=== PATIENT | female | born 1935 | race Caucasian/White ===

== ENCOUNTER 2017-03-17 07:47 | Emergency (ER) | payer MEDICARE, OTHER ==
[2017-03-17 08:41] LABS: Hematocrit 42 % (35-47); Mean Corpuscular HGB Conc 33 g/dl (31-36); Mean Corpuscular Hemoglobin 30 pg (27-31); Mean Corpuscular Volume 91 fL (80-97); Mean Platelet Volume 9 um3 (7.4-10.4); Red Blood Count 4.63 10^6/ul (4.0-5.4); Red Cell Distribution Width 14 % (10.5-15); White Blood Count 6.6 10^3/ul (3.5-10.8)
[2017-03-17 08:48] LABS: Albumin 4.1 g/dL (3.2-5.2); BUN/Creatinine Ratio 22.9 (8-20); Calcium 9.7 mg/dL (8.6-10.3); EGFR African American 71.4 (>60); EGFR Non-African American 55.5 (>60); Potassium 4.1 mmol/L (3.5-5.0); Total Bilirubin 0.5 mg/dL (0.2-1.0); Total Protein 7.1 g/dL (6.4-8.9)
[2017-03-17 12:35] LABS: Hematocrit 41 % (35-47); Hemoglobin 13.5 g/dl (12.0-16.0); Mean Corpuscular HGB Conc 33 g/dl (31-36); Mean Corpuscular Hemoglobin 30 pg (27-31); Mean Corpuscular Volume 91 fL (80-97); Mean Platelet Volume 9 um3 (7.4-10.4); Red Blood Count 4.47 10^6/ul (4.0-5.4); Red Cell Distribution Width 14 % (10.5-15); White Blood Count 8.4 10^3/ul (3.5-10.8)
[2017-03-17 13:21] VITALS: BP 173/78
--- NOTE | 2017-03-18 08:00 | ED ---
Ludin Knight Alfonso, scribed for Wilfredo Hernandez MD on 03/17/17 at 0804 . GI/ HPI - HPI Summary HPI Summary: This pt is an 82 y.o. F presenting to [facility] for bright red blood in her stool this morning. She reports the sensation of "burning in my rectum." Sx aggravated and alleviated by nothing. She denies nausea and vomiting. PMHx of internal hemorrhoids. Denies taking any blood thinning medication. Her last colonoscopy was 5-8 years ago - History of Current Complaint Chief Complaint: EDBleedingDisorder Time Seen by Provider: 03/17/17 07:51 Stated Complaint: RECTAL BLEEDING Hx Obtained From: Patient Onset/Duration: Started Hours Ago - This morning, Still Present Timing: Constant Severity: Moderate Current Severity: Moderate Location of Pain: Rectal - Burning Pain Characteristics: Burning Associated Signs and Symptoms: Positive: Bright Red Blood w/Stool. Negative: Nausea, Vomiting Aggravating Factor(s): Nothing Alleviating Factor(s): Nothing - Allergy/Home Medications Allergies/Adverse Reactions: Allergies Allergy/AdvReac Type Severity Reaction Status Date / Time Meperidine [From Demerol HCl] Allergy Vomiting Verified 12/11/15 07:17 PMH/Surg Hx/FS Hx/Imm Hx Endocrine/Hematology History: Reports: Hx Anticoagulant Therapy Denies: Hx Diabetes, Hx Thyroid Disease Cardiovascular History: Reports: Hx Hypertension Denies: Hx Congestive Heart Failure, Hx Deep Vein Thrombosis, Hx Myocardial Infarction, Hx Pacemaker/ICD Respiratory History: Denies: Hx Asthma, Hx Chronic Obstructive Pulmonary Disease (COPD), Hx Lung Cancer GI History: Denies: Hx Gall Bladder Disease, Hx Gastrointestinal Bleed, Hx Ulcer, Hx Urosepsis History: Denies: Hx Kidney Stones, Hx Renal Disease Neurological History: Denies: Hx Dementia, Hx Migraine, Hx Seizures, Hx Transient Ischemic Attacks (TIA) Psychiatric History: Denies: Hx Anxiety, Hx Depression, Hx Schizophrenia, Hx Bipolar Disorder - Cancer History Cancer Type, Location and Year: Basal cell - Surgical History Surgery Procedure, Year, and Place: Gallbladder, tonsil and adenoids, appendectomy Infectious Disease History: Denies: Hx Clostridium Difficile, Hx Hepatitis, Hx Human Immunodeficiency Virus (HIV), Hx of Known/Suspected MRSA, Hx Shingles, Hx Tuberculosis, Hx Known/ Suspected VRE, Hx Known/Suspected VRSA, History Other Infectious Disease, Traveled Outside the [place] in Last 30 Days - Family History Known Family History: Positive: Hypertension - Social History Alcohol Use: None Substance Use Type: Reports: None Smoking Status (MU): Never Smoked Tobacco Review of Systems Negative: Vomiting, Nausea Positive: burning - In rectum, other - blood in stool All Other Systems Reviewed And Are Negative: Yes Physical Exam - Summary Physical Exam Summary: VITAL SIGNS: Reviewed. GENERAL: Patient is a well-developed and nourished (MALE OR FEMALE) who is lying comfortable in the stretcher. Patient is not in any acute respiratory distress. HEAD AND FACE: No signs of trauma. No ecchymosis, hematomas or skull depressions. No sinus tenderness. EYES: PERRLA, EOMI x 2, No injected conjunctiva, no nystagmus. EARS: Hearing grossly intact. Ear canals and tympanic membranes are within normal limits. MOUTH: Oropharynx within normal limits. NECK: Supple, trachea is midline, no adenopathy, no JVD, no carotid bruit, no c- spine tenderness, neck with full ROM. CHEST: Symmetric, no tenderness at palpation LUNGS: Clear to auscultation bilaterally. No wheezing or crackles. CVS: Regular rate and rhythm, S1 and S2 present, no murmurs or gallops appreciated. ABDOMEN: Soft, non-tender. No signs of distention. No rebound no guarding, and no masses palpated. Bowel sounds are normal. EXTREMITIES: FROM in all major joints, no edema, no cyanosis or clubbing. NEURO: Alert and oriented x 3. No acute neurological deficits. Speech is normal and follows commands. 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 Normal sphincter tone. Multiple external hemorrhoids. Slight amount of bright red rectal blood. Triage Information Reviewed: Yes Vital Signs On Initial Exam: Initial Vitals Temp Pulse Resp BP Pulse Ox 98.7 F 92 16 193/71 99 03/17/17 07:55 03/17/17 07:55 03/17/17 07:55 03/17/17 07:55 03/17/17 07:55 Vital Signs Reviewed: Yes - [place] Coma Scale Coma Scale Total: 15 Diagnostics - Vital Signs Vital Signs Temp Pulse Resp BP Pulse Ox 03/17/17 07:55 98.7 F 92 16 193/71 99 - Laboratory Lab Results: Lab Results 03/17/17 03/17/17 03/17/17 Range/Units 08:15 08:15 08:15 WBC 6.6 (3.5-10.8) 10^3/ul RBC 4.63 (4.0-5.4) 10^6/ul Hgb 14.0 (12.0-16.0) g/dl Hct 42 (35-47) % MCV 91 (80-97) fL MCH 30 (27-31) pg MCHC 33 (31-36) g/dl RDW 14 (10.5-15) % Plt Count 210 (150-450) 10^3/ul MPV 9 (7.4-10.4) um3 Neut % (Auto) 48.4 (38-83) % Lymph % (Auto) 42.2 (25-47) % [place] % (Auto) 6.8 (1-9) % Eos % (Auto) 1.9 (0-6) % Baso % (Auto) 0.7 (0-2) % Absolute Neuts (auto) 3.2 (1.5-7.7) 10^3/ul Absolute Lymphs (auto) 2.8 (1.0-4.8) 10^3/ul Absolute Monos (auto) 0.5 (0-0.8) 10^3/ul Absolute Eos (auto) 0.1 (0-0.6) 10^3/ul Absolute Basos (auto) 0 (0-0.2) 10^3/ul Absolute Nucleated RBC 0.01 10^3/ul Nucleated RBC % 0.1 INR (Anticoag Therapy) 0.82 L (0.89-1.11) APTT 28.1 (26.0-36.3) seconds Sodium 137 (133-145) mmol/L Potassium 4.1 (3.5-5.0) mmol/L Chloride 104 (101-111) mmol/L Carbon Dioxide 27 (22-32) mmol/L Anion Gap 6 (2-11) mmol/L BUN 22 (6-24) mg/dL Creatinine 0.96 H (0.51-0.95) mg/dL Est GFR ( Amer) 71.4 (>60) Est GFR (Non-Af Amer) 55.5 (>60) BUN/Creatinine Ratio 22.9 H (8-20) Glucose 92 (70-100) mg/dL Calcium 9.7 (8.6-10.3) mg/dL Total Bilirubin 0.50 (0.2-1.0) mg/dL AST 28 (13-39) U/L ALT 21 (7-52) U/L Alkaline Phosphatase 73 (34-104) U/L Total Protein 7.1 (6.4-8.9) g/dL Albumin 4.1 (3.2-5.2) g/dL Globulin 3.0 (2-4) g/dL Albumin/Globulin Ratio 1.4 (1-3) Blood Type Antibody Screen Antibody Identification Direct Antiglob Test 03/17/17 03/17/17 Range/Units 08:15 12:14 WBC 8.4 (3.5-10.8) 10^3/ul RBC 4.47 (4.0-5.4) 10^6/ul Hgb 13.5 (12.0-16.0) g/dl Hct 41 (35-47) % MCV 91 (80-97) fL MCH 30 (27-31) pg MCHC 33 (31-36) g/dl RDW 14 (10.5-15) % Plt Count 201 (150-450) 10^3/ul MPV 9 (7.4-10.4) um3 Neut % (Auto) 65.3 (38-83) % Lymph % (Auto) 28.3 (25-47) % [place] % (Auto) 4.7 (1-9) % Eos % (Auto) 0.4 (0-6) % Baso % (Auto) 1.3 (0-2) % Absolute Neuts (auto) 5.5 (1.5-7.7) 10^3/ul Absolute Lymphs (auto) 2.4 (1.0-4.8) 10^3/ul Absolute Monos (auto) 0.4 (0-0.8) 10^3/ul Absolute Eos (auto) 0 (0-0.6) 10^3/ul Absolute Basos (auto) 0.1 (0-0.2) 10^3/ul Absolute Nucleated RBC 0 10^3/ul Nucleated RBC % 0 INR (Anticoag Therapy) (0.89-1.11) APTT (26.0-36.3) seconds Sodium (133-145) mmol/L Potassium (3.5-5.0) mmol/L Chloride (101-111) mmol/L Carbon Dioxide (22-32) mmol/L Anion Gap (2-11) mmol/L BUN (6-24) mg/dL Creatinine (0.51-0.95) mg/dL Est GFR ( Amer) (>60) Est GFR (Non-Af Amer) (>60) BUN/Creatinine Ratio (8-20) Glucose (70-100) mg/dL Calcium (8.6-10.3) mg/dL Total Bilirubin (0.2-1.0) mg/dL AST (13-39) U/L ALT (7-52) U/L Alkaline Phosphatase (34-104) U/L Total Protein (6.4-8.9) g/dL Albumin (3.2-5.2) g/dL Globulin (2-4) g/dL Albumin/Globulin Ratio (1-3) Blood Type A Negative Antibody Screen Positive Antibody Identification Anti-D Direct Antiglob Test Negative Result Diagrams: 03/17/17 12:14 03/17/17 08:15 Lab Statement: Any lab studies that have been ordered have been reviewed, and results considered in the medical decision making process. Re-Evaluation - Re-Evaluation 1218 Re-Evaluation Time: 12:18 - Pt sx are improved. She has no complains at this time. Change: Improved Second Eval Re-Evaluation Time: 13:15 - Improved. Asymptomatic. Wants to go home. Change: Improved GIGU Course/Dx - Course Course Of Treatment: This pt is an 82 y.o. F presenting to [facility] for bright red blood in her stool this morning. She reports the sensation of "burning in my rectum." Sx aggravated and alleviated by nothing. She denies nausea and vomiting. PMHx of internal hemorrhoids. Denies taking any blood thinning medication. Her last colonoscopy was 5-8 years ago Assessment/Plan: Test results within normal limits. Hemoglobin and hematocrit are normal. 4 hours later I repeated H&H and still stable. In the ed course, patient has no episodes of rectal bleeding. I believe the bleeding is secondary to external hemorrhoids. Patient will buy OTC hemorrhoid medication and follow up with PCP. I discussed all the findings and test results with the patient and the need to return to the ED if she develops more bleeding, palpations, dizziness, or the feeling she is going to pass out. She is hemodynamically stable and AxOx3. This pt is an 82 y.o. F presenting to [facility] for bright red blood in her stool this morning. She reports the sensation of "burning in my rectum." Sx aggravated and alleviated by nothing. She denies nausea and vomiting. PMHx of internal hemorrhoids. Denies taking any blood thinning medication. Her last colonoscopy was 5-8 years ago - Diagnoses Differential Diagnoses - Female: Hemorrhoids, Other - GI bleed Provider Diagnoses: External hemorrhoid Discharge - Discharge Plan Condition: Stable Disposition: HOME Patient Education Materials: Hemorrhoids (ED) Referrals: Black Ojeda MD [Primary Care Provider] - 3 Days The documentation as recorded by the Ludin alcantara Alfonso accurately reflects the service I personally performed and the decisions made by me, Wilfredo Hernandez MD.
== END 2017-03-17 13:22 | disposition home or self-care (01) ==
LOC: ED 07:47
DX: K64.4 Residual hemorrhoidal skin tags (principal); K62.5 Hemorrhage of anus and rectum
CPT/HCPCS: 36415; 80053; 82270; 85025; 85610; 85730; 86850; 86870; 86880; 86900; 86901; 99282

== ENCOUNTER 2017-04-18 09:23 | Emergency (ER) | payer MEDICARE, OTHER ==
--- NOTE | 2017-04-18 11:32 | RAD ---
HISTORY: Nausea COMPARISONS: January 19, 2015 VIEWS: 4: Frontal dual-energy and lateral views of the chest. FINDINGS: CARDIOMEDIASTINAL SILHOUETTE: The cardiomediastinal silhouette is normal. JENA: The jena are normal. PLEURA: The costophrenic angles are sharp. No pleural abnormalities are noted. LUNG PARENCHYMA: The lungs are clear. ABDOMEN: There is a small hiatal hernia BONES AND SOFT TISSUES: There is a scoliotic curvature of the spine OTHER: None. IMPRESSION: SMALL HIATAL HERNIA. NO ACTIVE CARDIOPULMONARY DISEASE.
--- NOTE | 2017-04-18 11:33 | RAD ---
HISTORY: Nausea COMPARISONS: None VIEWS: Frontal views of the abdomen. FINDINGS: BOWEL: There is a nonspecific bowel gas pattern, with nondilated small bowel gas noted. There is a moderate amount of stool within the colon. There is a small hiatal hernia CALCULI: There are no abnormal calculi. BONES AND SOFT TISSUES: There is a scoliotic curvature of the spine OTHER FINDINGS: The lung bases are clear. There is no subphrenic gas. IMPRESSION: HIATAL HERNIA. NONSPECIFIC BOWEL GAS PATTERN.
[2017-04-18 12:10] LABS: Hematocrit 42 % (35-47); Hemoglobin 13.9 g/dl (12.0-16.0); Mean Corpuscular HGB Conc 33 g/dl (31-36); Mean Corpuscular Hemoglobin 31 pg (27-31); Mean Corpuscular Volume 93 fL (80-97); Mean Platelet Volume 9 um3 (7.4-10.4); Red Blood Count 4.52 10^6/ul (4.0-5.4); Red Cell Distribution Width 14 % (10.5-15); White Blood Count 7.2 10^3/ul (3.5-10.8)
[2017-04-18 12:28] LABS: Albumin 3.9 g/dL (3.2-5.2); BUN/Creatinine Ratio 22.8 (8-20); Calcium 9.5 mg/dL (8.6-10.3); EGFR Non-African American 58.3 (>60); Globulin 3.2 g/dL (2-4); Potassium 4.2 mmol/L (3.5-5.0); Total Bilirubin 0.6 mg/dL (0.2-1.0); Total Protein 7.1 g/dL (6.4-8.9)
[2017-04-18 14:18] LABS: Urine Bilirubin Negative (Negative); Urine Glucose Negative (Negative); Urine Nitrite Negative (Negative)
--- NOTE | 2017-04-18 15:03 | ED ---
Abdominal Pain/Female - HPI Summary HPI Summary: Patient presents to ED with nausea x 3 weeks worse in the morning and dissipates after eating breakfast. Denies heartburn diarrhea, constipation, or vomiting. She was seen in the ED 2 weeks ago with rectal bleeding and dx with hemorrhoids. She is no longer having rectal bleeding and denies any chest pain , SOB, FREEMAN, weakness, dizziness or difficulty swallowing. She is eating and drinking OK, but per daughter has been eating less and has recently cut out sugar d/t having a recent BG of 102. She is otherwise healthy. - History of Current Complaint Chief Complaint: EDNauseaVomitDiarrh Stated Complaint: NAUSEA Hx Obtained From: Patient Hx Last Menstrual Period: Years ago. ?: No Onset/Duration: Sudden Onset Timing: Minutes Severity Initially: Mild Severity Currently: Mild Pain Intensity: 0 Pain Scale Used: 0-10 Numeric Location: Epigastric Radiates: No Character: Dull Aggravating Factor(s): Nothing Alleviating Factor(s): Other: - food Associated Signs and Symptoms: Positive: Negative - Risk Factors Ectopic Risk Factor: Negative Ovarian Torsion Risk Factor: Negative Allergies/Adverse Reactions: Allergies Allergy/AdvReac Type Severity Reaction Status Date / Time Meperidine [From Demerol HCl] Allergy Vomiting Verified 12/11/15 07:17 PMH/Surg Hx/FS Hx/Imm Hx Previously Healthy: Yes Endocrine/Hematology History: Reports: Hx Anticoagulant Therapy Denies: Hx Diabetes, Hx Thyroid Disease Cardiovascular History: Reports: Hx Hypertension Denies: Hx Congestive Heart Failure, Hx Deep Vein Thrombosis, Hx Myocardial Infarction, Hx Pacemaker/ICD Respiratory History: Denies: Hx Asthma, Hx Chronic Obstructive Pulmonary Disease (COPD), Hx Lung Cancer GI History: Denies: Hx Gall Bladder Disease, Hx Gastrointestinal Bleed, Hx Ulcer, Hx Urosepsis History: Denies: Hx Kidney Stones, Hx Renal Disease Neurological History: Denies: Hx Dementia, Hx Migraine, Hx Seizures, Hx Transient Ischemic Attacks (TIA) Psychiatric History: Denies: Hx Anxiety, Hx Depression, Hx Schizophrenia, Hx Bipolar Disorder - Cancer History Cancer Type, Location and Year: Basal cell - Surgical History Surgery Procedure, Year, and Place: Gallbladder, tonsil and adenoids, appendectomy - Immunization History Hx Pertussis Vaccination: No Immunizations Up to Date: Unable to Obtain/Confirm Infectious Disease History: Denies: Hx Clostridium Difficile, Hx Hepatitis, Hx Human Immunodeficiency Virus (HIV), Hx of Known/Suspected MRSA, Hx Shingles, Hx Tuberculosis, Hx Known/ Suspected VRE, Hx Known/Suspected VRSA, History Other Infectious Disease, Traveled Outside the [place] in Last 30 Days - Family History Known Family History: Positive: None, Hypertension - Social History Occupation: Unemployed, Retired Lives: Assisted Living Alcohol Use: None Hx Substance Use: No Substance Use Type: Reports: None Hx Tobacco Use: No Smoking Status (MU): Never Smoked Tobacco Review of Systems Constitutional: Negative Eyes: Negative Cardiovascular: Negative Respiratory: Negative Positive: Nausea Positive: no symptoms reported, see HPI Musculoskeletal: Negative Neurological: Negative Psychological: Normal All Other Systems Reviewed And Are Negative: Yes Physical Exam Triage Information Reviewed: Yes Vital Signs On Initial Exam: Initial Vitals Temp Pulse Resp BP 97.6 F 94 18 176/76 04/18/17 09:24 04/18/17 09:24 04/18/17 09:24 04/18/17 09:24 Vital Signs Reviewed: Yes Appearance: Positive: Well-Appearing, Well-Nourished Skin: Positive: Warm, Skin Color Reflects Adequate Perfusion Eyes: Positive: Normal, EOMI, [place], Conjunctiva Clear Neck: Positive: Supple, No Lymphadenopathy Respiratory/Lung Sounds: Positive: Clear to Auscultation, Breath Sounds Present Cardiovascular: Positive: Normal, RRR, Pulses are Symmetrical in both Upper and Lower Extremities Musculoskeletal: Positive: Normal, Strength/ROM Intact Neurological: Positive: Normal, Sensory/Motor Intact, Alert, Oriented to Person Place, Time Psychiatric: Positive: Normal AVPU Assessment: Alert - [place] Coma Scale Coma Scale Total: 15 Diagnostics - Vital Signs Vital Signs Temp Pulse Resp BP Pulse Ox 04/18/17 09:59 97.8 F 75 16 154/84 100 04/18/17 09:24 97.6 F 94 18 176/76 - Laboratory Lab Results: Lab Results 04/18/17 04/18/17 04/18/17 Range/Units 12:02 12:02 12:02 WBC 7.2 (3.5-10.8) 10^3/ul RBC 4.52 (4.0-5.4) 10^6/ul Hgb 13.9 (12.0-16.0) g/dl Hct 42 (35-47) % MCV 93 (80-97) fL MCH 31 (27-31) pg MCHC 33 (31-36) g/dl RDW 14 (10.5-15) % Plt Count 206 (150-450) 10^3/ul MPV 9 (7.4-10.4) um3 Neut % (Auto) 63.8 (38-83) % Lymph % (Auto) 30.2 (25-47) % [place] % (Auto) 5.3 (1-9) % Eos % (Auto) 0.2 (0-6) % Baso % (Auto) 0.5 (0-2) % Absolute Neuts (auto) 4.6 (1.5-7.7) 10^3/ul Absolute Lymphs (auto) 2.2 (1.0-4.8) 10^3/ul Absolute Monos (auto) 0.4 (0-0.8) 10^3/ul Absolute Eos (auto) 0 (0-0.6) 10^3/ul Absolute Basos (auto) 0 (0-0.2) 10^3/ul Absolute Nucleated RBC 0 10^3/ul Nucleated RBC % 0 Sodium 140 (133-145) mmol/L Potassium 4.2 (3.5-5.0) mmol/L Chloride 106 (101-111) mmol/L Carbon Dioxide 26 (22-32) mmol/L Anion Gap 8 (2-11) mmol/L BUN 21 (6-24) mg/dL Creatinine 0.92 (0.51-0.95) mg/dL Est GFR ( Amer) 75.0 (>60) Est GFR (Non-Af Amer) 58.3 (>60) BUN/Creatinine Ratio 22.8 H (8-20) Glucose 93 (70-100) mg/dL Lactic Acid 0.9 (0.5-2.0) mmol/L Calcium 9.5 (8.6-10.3) mg/dL Total Bilirubin 0.60 (0.2-1.0) mg/dL AST 27 (13-39) U/L ALT 23 (7-52) U/L Alkaline Phosphatase 66 (34-104) U/L Troponin I 0.00 (<0.04) ng/mL Total Protein 7.1 (6.4-8.9) g/dL Albumin 3.9 (3.2-5.2) g/dL Globulin 3.2 (2-4) g/dL Albumin/Globulin Ratio 1.2 (1-3) Amylase 58 (29-103) U/L Lipase 20 (11.0-82.0) U/L Urine Color Urine Appearance Urine pH (5-9) Ur Specific [place] (1.010-1.030) Urine Protein (Negative) Urine Ketones (Negative) Urine Blood (Negative) Urine Nitrate (Negative) Urine Bilirubin (Negative) Urine Urobilinogen (Negative) Ur Leukocyte Esterase (Negative) Urine WBC (Auto) (Absent) Urine RBC (Auto) (Absent) Urine Glucose (Negative) Urine Ascorbic Acid (Negative) 04/18/17 Range/Units 13:30 WBC (3.5-10.8) 10^3/ul RBC (4.0-5.4) 10^6/ul Hgb (12.0-16.0) g/dl Hct (35-47) % MCV (80-97) fL MCH (27-31) pg MCHC (31-36) g/dl RDW (10.5-15) % Plt Count (150-450) 10^3/ul MPV (7.4-10.4) um3 Neut % (Auto) (38-83) % Lymph % (Auto) (25-47) % [place] % (Auto) (1-9) % Eos % (Auto) (0-6) % Baso % (Auto) (0-2) % Absolute Neuts (auto) (1.5-7.7) 10^3/ul Absolute Lymphs (auto) (1.0-4.8) 10^3/ul Absolute Monos (auto) (0-0.8) 10^3/ul Absolute Eos (auto) (0-0.6) 10^3/ul Absolute Basos (auto) (0-0.2) 10^3/ul Absolute Nucleated RBC 10^3/ul Nucleated RBC % Sodium (133-145) mmol/L Potassium (3.5-5.0) mmol/L Chloride (101-111) mmol/L Carbon Dioxide (22-32) mmol/L Anion Gap (2-11) mmol/L BUN (6-24) mg/dL Creatinine (0.51-0.95) mg/dL Est GFR ( Amer) (>60) Est GFR (Non-Af Amer) (>60) BUN/Creatinine Ratio (8-20) Glucose (70-100) mg/dL Lactic Acid (0.5-2.0) mmol/L Calcium (8.6-10.3) mg/dL Total Bilirubin (0.2-1.0) mg/dL AST (13-39) U/L ALT (7-52) U/L Alkaline Phosphatase (34-104) U/L Troponin I (<0.04) ng/mL Total Protein (6.4-8.9) g/dL Albumin (3.2-5.2) g/dL Globulin (2-4) g/dL Albumin/Globulin Ratio (1-3) Amylase (29-103) U/L Lipase (11.0-82.0) U/L Urine Color Yellow Urine Appearance Cloudy Urine pH 5.0 (5-9) Ur Specific [place] 1.021 (1.010-1.030) Urine Protein 1+(30 mg/dl) H (Negative) Urine Ketones Trace H (Negative) Urine Blood Negative (Negative) Urine Nitrate Negative (Negative) Urine Bilirubin Negative (Negative) Urine Urobilinogen Negative (Negative) Ur Leukocyte Esterase 2+ H (Negative) Urine WBC (Auto) 2+(11-20/hpf) H (Absent) Urine RBC (Auto) Absent (Absent) Urine Glucose Negative (Negative) Urine Ascorbic Acid * H (Negative) Result Diagrams: 04/18/17 12:02 04/18/17 12:02 Lab Statement: Any lab studies that have been ordered have been reviewed, and results considered in the medical decision making process. Abdominal Pain Fem Course/Dx - Course Course Of Treatment: Patient arrives with CC of nausea in the morning. She experienced rectal bleeding 3 weeks ago and was seen in the ED, diagnosed with hemorrhoids. She is concerned both are related. No rectal bleeding x 2 weeks. Xray reveals small hiatal hernia. She notes to nausea only in the mornings and dissipates after PO intake. Denies other complaints at this time. VS stable and labs WNL. UA shows leuks and WBC and will treat with Cipro for UTI. Zofran given PRN rx. Omeprazole 20mg encouraged daily until follow up with GI. Treatment options discussed and patient agrees to see Dr. Mckinnon. - Diagnoses Differential Diagnosis: Positive: Peptic Ulcer Disease, Urinary Tract Infection , Other - nausea Provider Diagnoses: Hiatal hernia Discharge - Discharge Plan Condition: Stable Disposition: HOME Prescriptions: Ciprofloxacin TAB* [Cipro 500 MG TAB*] 500 mg PO BID #14 tab MDD 2 Omeprazole CAP* [Prilosec CAP* 20 MG] 20 mg PO DAILY #30 cap. Ondansetron ODT TAB* [Zofran 4 MG Odt TAB*] 4 mg PO Q6H PRN #12 tab.odt PRN Reason: Nausea Patient Education Materials: Hiatal Hernia (ED) Referrals: Black Ojeda MD [Primary Care Provider] - Additional Instructions: Dx: Hiatal Hernia Follow up with Dr. Mckinnon For nausea, you may take 4mg zofran as needed Take omeprazole 20mg daily for heartburn and nausea symptoms Ciprofloxacin 500mg twice daily for 7 days for UTI symptoms Dx. Urinary Tract Infection Drink plenty of fluids. Supplement with cranberry or rai juice. You may also take an over the counter cranberry supplement. If you have any questions about this, you may ask your pharmacist. If your symptoms have not improved in 1-2 days, if you develop fever, sweats or chills, please go to your emergency room, or call your PCP. Antibiotics were prescribed to you. Please take as directed. Supplement with over the counter probiotics on the opposite schedule of your antibiotic to prevent secondary infections. Do not take together as they may counteract each other.
[2017-04-18 15:06] VITALS: BP 154/74
== END 2017-04-18 15:03 | disposition home or self-care (01) ==
LOC: ED 09:23
DX: K44.9 Diaphragmatic hernia without obstruction or gangrene (principal); R11.0 Nausea
CPT/HCPCS: 36415; 71020; 74020; 80053; 81003; 81015; 82150; 83605; 83690; 84484; 85025; 87086; 93005; 99282